=== PATIENT | female | born 1975 | race Two or more races ===

== ENCOUNTER 2024-05-11 12:45 | Emergency (ER) | payer BC, OTHER ==
[~2024-05-11] VITALS: Ht 154.9 cm; Wt 81.4 kg
[2024-05-11 13:22] VITALS: BP 130/60; PULSE 110; RESP 16; TEMP 97.7; O2SAT 98
[2024-05-11] MEDS ORDERED: CALA1SUS2 EX (14:07)
[2024-05-11] MEDS ORDERED: TRIO1TP EX (14:07)
[2024-05-11] MEDS ORDERED: HYDR-3682 PO (14:07)
[2024-05-11] MEDS ORDERED: PRED20TA2 PO (14:07)
--- NOTE | 2024-05-11 14:07 | ED.PDOC ---
History of Present Illness(SKN HPI Comments Female with no pertinent MHx presents with a chief complaint of pruritus x2 days. Symptoms come and go. Able to get minimal relief with [id number] ointments and Benadryl. 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 All Other Systems: Reviewed and Negative (Per HPI) Physical Exam General Appearance: No Apparent Distress, Normal HEENT: Normal ENT Inspection, Pharynx Normal, TMs Normal Neck: Full Range of Motion, Non-Tender, Normal, Normal Inspection Respiratory: Chest Non-Tender, Lungs Clear, No Accessory Muscle Use, No Respiratory Distress, Normal Breath Sounds Cardiovascular: No Edema, No JVD, No Murmur, No Gallop, Normal Peripheral Pulses, Regular Rate/Rhythm Breast Exam: Deferred Gastrointestinal: No Organomegaly, Non Tender, No Pulsatile Mass, Normal Bowel Sounds, Soft Genitalia: Deferred Pelvic: Deferred Rectal: Deferred Extremities: No calf tenderness, Normal capillary refill, Normal inspection, Normal range of motion, Non-tender, No pedal edema Musculoskeletal : Apperance: Normal Neurologic: Alert, insurance business analyst II-XII nml as Tested, No Motor Deficits, Normal Affect, Normal Mood, No Sensory Deficits Cerebellar Function: Normal Reflexes: Normal Skin: Dry, Normal Color, Warm Lymphatic: No Adenopathy Was a procedure done? Was a procedure done?: No Differential Diagnosis (INTG) Differential Diagnosis: Other X-Ray, Labs, Meds, VS Vital Signs Date Time Temp Pulse Resp B/P (MAP) Pulse Ox O2 Delivery O2 Flow Rate FiO2 05/11/24 13:22 97.7 110 16 130/60 (83) 98 97.7 05/11/24 13:22 110 16 98 Room Air 05/11/24 12:57 97.6 111 18 134/65 (88) 99 X-Ray, Labs, Meds, VS Comment Patient asymptomatic at this time. Empiric treatment will be initiated Time of 1ST Reevaluation: 14:04 Reevaluation 1ST: Improved Patient Education/Counseling: Diagnosis, Treatment Family Education/Counseling: Diagnosis, Treatment Departure 1 Departure Time of Disposition: 14:05 Impression: Primary Impression: Chronic pruritus Disposition: 01 HOME / SELF CARE / HOMELESS Condition: Stable e-Prescriptions Hydroxyzine Hcl (Hydroxyzine Hcl) 25 Mg Tab 1 TAB PO TIDPRN PRN for 14 Days, #42 TAB 0 Refills Prov: SFOIA HERNANDEZ NP 05/11/24 Calamine-Zinc Oxide (Calamine 8-8 %) 1 Liliam Liliam 1 LILIAM EX UD for 30 Days, #1 BOTTLE 0 Refills Prov: SOFIA HERNANDEZ NP 05/11/24 Triamcinolone Acetonide (Triamcinolone Acetonide) 0.1 % Cre 2 GRAMS EX BID for 7 Days, #60 GRAMS 0 Refills Prov: SOFIA HERNANDEZ NP 05/11/24 Prednisone (Prednisone) 20 Mg Tab 40 MG PO DAILY for 5 Days, #10 TAB 0 Refills Prov: SOFIA HERNANDEZ NP 05/11/24 Discharged With: Self Critical Care Note Critical Care Time?: No Stability Stability form required: No Heart Score Heart Score: Heart Score Response (Comments) Value History N/A 0 EKG N/A 0 Age N/A 0 Risk Factors N/A 0 Troponin N/A 0 Total 0 SOFIA HERNANDEZ NP May 11, 2024 14:07
== END 2024-05-11 14:21 | disposition home or self-care (01) ==
LOC: ER 12:45
DX: L29.9 Pruritus, unspecified (principal)